=== PATIENT | female | born 1955 | race Native Hawaiian/Other Pacific Islander ===

== ENCOUNTER 2016-11-20 13:55 | Emergency (ER) | payer OTHER ==
[~2016-11-20] VITALS: Ht 165.1 cm; Wt 104.3 kg
[~2016-11-20 13:55] MED LIST: AZEL137S; BENICAR HCT1 TA2 PO; FLUOXETINE40 MG PO; FLUTMIS14 INH; HYDRALAZINE10 MG PO; IMDUR60 MG; IMDUR60 MG PO; INSU100I2; INSU100I2 SC; IPRA18AE INH; LABETALOL200 MG PO; METF100038 PO; SIMV40TA57 PO; SPIR25TA66 PO; TRICOR145 MG PO; VITAMIN D5000 UNIT PO; WELLBUTRIN75 MG PO; ZESTRIL40 MG PO
[2016-11-20 16:47] VITALS: BP 226/106; TEMP 98.5
== END 2016-11-20 16:47 | disposition home or self-care (01) ==
LOC: ED 13:55
DX: N39.0 Urinary tract infection, site not specified (principal); Z86.73 Personal history of transient ischemic attack (TIA), and cerebral infarction without residual deficits; E11.9 Type 2 diabetes mellitus without complications
CPT/HCPCS: 99281